=== PATIENT | female | born 1990 | race Caucasian/White ===

== ENCOUNTER → 2025-02-05 20:29 | Outpatient (REF) | payer BC, SELFPAY | LOC: PAVMRI 20:29 | PROVIDERS: ATTENDING PHYSICIAN Orthopaedic Surgery; FAMILY PHYSICIAN Family Medicine | DX: M25.562 Pain in left knee (principal) | CPT/HCPCS: 73721 ==

== ENCOUNTER 2025-02-11 11:57 | Emergency (ER) | payer BC, SELFPAY ==
[2025-02-11 12:04] VITALS: BP 132/79
--- NOTE | 2025-02-11 13:05 | ED.GENMED ---
History of Present Illness
General
Chief Complaint: DVT/Possible Blood Clot
Time Seen by Provider: 02/11/25 12:44
History of Present Illness
History of Present Illness:
34-year-old female presents to the emergency department for evaluation of diffuse left leg swelling and calf cramping, sent for an outpatient ultrasound that showed an extensive left lower extremity DVT. She fractured her left tibial plateau 2
weeks ago and has been nonweightbearing in a knee immobilizer since that time. No prior history of DVT. She is also on oral contraceptives. No chest pain or shortness of breath.
Past History
Past History
ED Past Medical History: GERD
ED Past Surgical History: None
Social History
Tobacco: Non-smoker
Alcohol: Occasional
Personal: Single
Review of Systems
Review of Systems
Allergies reviewed?: Yes
All Other Systems: ROS reviewed and negative except as documented in HPI and ROS
Phy Exam
Physical Exam
Physical Exam:
GEN: Well appearing, NAD, WDWN
HEENT: Oral mucosa moist, no scleral icterus
Cardiac: Regular rate
Lung: No respiratory distress, no tachypnea
MSK: No gross deformity or injuries. Strong left dorsalis pedis pulse, leg is diffusely edematous with intact capillary refill and sensation
Skin: Good color, no pallor or jaundice, no rashes
Neuro: AO x3, moves all extremities freely
Psych: Calm, cooperative
Course
Orders/Labs/Results
Orders:
Orders
02/11/25 13:05
Apixaban [Eliquis] 10 mg PO NOW STA
Vital Signs
Initial and Last Documented VS:
Initial Vital Signs
Temp Pulse Resp BP Pulse Ox
98 F 91 16 132/79 98
02/11/25 12:04 02/11/25 12:04 02/11/25 12:04 02/11/25 12:04 02/11/25 12:04
Last Documented Vital Signs
Temp Pulse Resp BP Pulse Ox
98 F 91 16 132/79 98
02/11/25 12:04 02/11/25 12:04 02/11/25 12:04 02/11/25 12:04 02/11/25 13:05
MDM/Problems Addressed
MDM/Problems Addressed:
DVT likely provoked by immobilization plus oral contraceptive use. Did briefly consider workup for May Guzmán syndrome however given that these are likely provoked, do not feel this is prudent at this time. Will start on Eliquis and refer to
primary care for follow-up
*Pulse Oximetry
SaO2: 98
Oxygen Mode of Delivery: Room air
Patient hypoxic: no
*Critical Care Note
Total Time (30-74mins, 75-104mins- exclusive of procedures): Not Applicable
ED Attending Note
-
Portions of this chart may have been created with voice recognition software.� Occasional wrong word or��sound alike� substitutions may have occurred due to the inherent limitations of voice recognition software.
Discharge Plan
Departure
Patient Disposition: Home (Routine Discharge)
Date of Disposition: 02/11/25
Time of Disposition: 13:05
Patient with high blood pressure during this ER visit?: No
Discharge Problem:
Acute deep vein thrombosis (DVT) of left lower extremity
Instructions: Deep Vein Thrombosis (Blood Clots in the Legs) (DC)
Prescriptions:
New
Eliquis 5 mg tablet
5 mg PO BID Qty: 74 0RF
Rx Instructions:
10mg PO BID x 7d then 5mg PO BID
No Action
propranolol 60 mg Tablet
60 mg PO DAILY
losartan 25 mg Tablet
25 mg PO DAILY
Referrals:
Ivan Mccloud DO [Family Provider]
Activity Restrictions/Additional Instructions:
Follow-up with your primary care physician
Absolutely no anti-inflammatory medicines such as ibuprofen/aspirin/naproxen
If you fall and suffer any head injuries seek immediate emergency department evaluation
Interventions
Interventions:
*Risk Screen - Suicide Last Done: 02/11/25 12:04
*General Assessment Last Done: 02/11/25 13:08
*Neglect/Abuse Screening Last Done: 02/11/25 12:04
*Nursing Disposition Last Done: 02/11/25 13:51
ED- Pulmonary Assessment Last Done: 02/11/25 13:08
ED-Skin Assessment Last Done: 02/11/25 13:08
Discharge Date and Time
Discharge Date/Time: 02/11/25 13:51
Print Language: MONTENEGRIN
[2025-02-11] MEDS: ELIQUIS 10 MG PO (13:27)
== END 2025-02-11 13:51 | disposition home or self-care (01) ==
LOC: EMR 11:57
PROVIDERS: EMERGENCY PHYSICIAN Student in an Organized Health Care Education/Training Program; FAMILY PHYSICIAN Family Medicine
DX: I82.402 Acute embolism and thrombosis of unspecified deep veins of left lower extremity (principal); K21.9 Gastro-esophageal reflux disease without esophagitis; Z79.01 Long term (current) use of anticoagulants
CPT/HCPCS: 99283; 93971